=== PATIENT | female | born 1960 | race Caucasian/White ===

== ENCOUNTER 2019-04-06 15:10 | Emergency (ER) | payer OTHER ==
[~2019-04-06] VITALS: Ht 167.6 cm; Wt 75.0 kg
[2019-04-06] MEDS ORDERED: KETOROLAC 60MG/2ML VIAL IM ONE (15:45)
[2019-04-06 17:18] VITALS: BP 128/80
== END 2019-04-06 17:18 | disposition home or self-care (01) ==
LOC: ER 15:10
DX: S09.90XA Unspecified injury of head, initial encounter (principal); S10.93XA Contusion of unspecified part of neck, initial encounter; V49.40XA Driver injured in collision with unspecified motor vehicles in traffic accident, initial encounter; Y93.89 Activity, other specified; Y92.410 Unspecified street and highway as the place of occurrence of the external cause
CPT/HCPCS: 70450; 72125; 96372; 99284; J1885